=== PATIENT | female | born 1990 | race American Indian/Alaskan Native ===

== ENCOUNTER 2019-03-14 17:48 | Inpatient (IN) | payer MEDICAID ==
[2019-03-14] MEDS ORDERED: LACTATED RINGERS 1,000 ML IV ONE (20:08)
[2019-03-14] MEDS ORDERED: MINERAL OIL 30 ML ORAL LIQD PO PRN (21:47)
[2019-03-14] MEDS ORDERED: ePHEDrine SULFATE 50 MG/1 ML INJ IV PRN (21:47)
[2019-03-14] MEDS ORDERED: LIDOCAINE (2%) 20 MG/1 ML VIAL 20 ML MDV INFILTRATI ONE (21:47)
[2019-03-14] MEDS ORDERED: ONDANSETRON 4 MG/2 ML INJ IV PRN ×2 (21:47→22:27)
[2019-03-14] MEDS ORDERED: BUTORPHANOL 2 MG/1 ML INJ IV PRN (21:47)
[2019-03-14] MEDS ORDERED: TERBUTALINE 1 MG/1 ML INJ IVP PRN (21:47)
[2019-03-14] MEDS ORDERED: TERBUTALINE 1 MG/1 ML INJ SUB-Q PRN (21:47)
[2019-03-14] MEDS ORDERED: AMPICILLIN/NS 2 GM/100 ML 2 GM/100 ML BAG IV ONE ×2 (21:47→21:49)
[2019-03-14] MEDS ORDERED: fentaNYL 100 MCG/2 ML INJ IV PRN (21:47)
[2019-03-14] MEDS ORDERED: OXYTOCIN 20 UNIT/1000ML DRIP 20,000 MILLIUNITS/1,000 ML BAG IV ONE (21:49)
--- NOTE | 2019-03-14 21:54 | History and Physical Report ---
History of Present Illness Date of examination: 03/14/19 Chief complaint: Labor History of present illness: Pt is a 28yo BF EDC 03/24/19; EGA 38 4/7 weeks presents to L&D complaining of RUC's q 3-5 mins. She received late care at [facility] since 27 weeks and course has been unremarkable. records are available and GBS is Positive. 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 Social history: no significant social history, single - Obstetrical History Expected Date of Delivery: 03/24/19 Actual Gestation: 38 Week(s) 5 Day(s) Medications and Allergies Allergies Allergy/AdvReac Type Severity Reaction Status Date / Time No Known Allergies Allergy Verified 03/14/19 23:54 Review of Systems All systems: negative - Vital Signs Vital signs: Vital Signs Pulse BP 89 109/75 03/14/19 18:10 03/14/19 18:10 Temp Pulse Resp BP Pulse Ox 82 109/75 98 03/14/19 19:01 03/14/19 18:10 03/14/19 19:01 - Physical Exam Cardiovascular: Regular rate Lungs: Positive: Clear to auscultation Abdomen: Positive: normal appearance Genitourinary (Female): Positive: normal external genitalia Uterus: Positive: enlarged Extremities: Positive: normal - Obstetrical FHR: category 1 Uterine Contraction Monitor Mode: External Cervical Dilatation: 10 Cervical Effacement Percentage: 100 Uterine Contraction Pattern: Regular Uterine Tone Measurement Phase: Contraction Uterine Contraction Intensity: Moderate Results Result Diagrams: 03/14/19 Unknown All other labs normal. Assessment and Plan - Patient Problems (1) 38 weeks gestation of Onset Date: 03/14/19 Current Visit: Yes Status: Acute Plan to address problem: A: IUP @ 38 4/7 weeks in labor +GBS P: Admit to L&D for expectant vaginal delivery IV Ampicillin
[2019-03-14] MEDS ORDERED: OXYTOCIN 20 UNIT/1000ML DRIP 20 UNITS/1,000 ML BAG IV SCH (22:00)
[2019-03-14] MEDS ORDERED: OXYTOCIN DRIP 30 UNITS/500 ML BAG IV SCH (22:00)
[2019-03-14] MEDS ORDERED: LACTATED RINGERS 1,000 ML IV SCH (22:00)
[2019-03-14 22:02] LABS: Hematocrit 35.1 % (30.3-42.9); Hemoglobin 11.5 gm/dl (10.1-14.3); Mean Corpuscular HGB Conc 33 % (30-34); Mean Corpuscular Volume 85 fl (79-97); Platelet Count 243 K/mm3 (140-440); Red Blood Count 4.15 M/mm3 (3.65-5.03); Red Cell Distribution Width 13.7 % (13.2-15.2)
--- NOTE | 2019-03-14 22:26 | Procedure Note ---
OB Delivery Note - Delivery Date of Delivery: 03/14/19 Surgeon: MICHAEL MITCHELL Estimated blood loss: 200cc - Vaginal Delivery presentation: vertex Delivery position: OA Intrapartum events: precipitous labor- <3hr Delivery induction: none Delivery augmentation: rupture of membranes Delivery monitor: external FHT, external uterine Route of delivery: Delivery placenta: spontaneous Delivery cord: nuchal cord, 3 umbilical vessels Episiotomy: none Delivery laceration: none Anesthesia: none Delivery comments: Infant delivered OA and placed on Mom's chest for [id number] bonding and delayed cord clamping, cut by Mom - Infant A at 1 minute: 8 at 5 minutes: 9 Gender: Female (3360gms)
[2019-03-14] MEDS ORDERED: diphenhydrAMINE 25 MG CAP PO PRN (22:27)
[2019-03-14] MEDS ORDERED: WITCH HAZEL/ GLYCERIN PAD TP PRN (22:27)
[2019-03-14] MEDS ORDERED: MAGNESIUM HYDROXIDE (MOM) ORAL LIQD UDC PO PRN (22:27)
[2019-03-14] MEDS ORDERED: BENZOCAINE/MENTHOL 20/0.5% TOP SPRAY 56 GM TP PRN (22:27)
[2019-03-14] MEDS ORDERED: PROMETHAZINE 25 MG TAB PO PRN (22:27)
[2019-03-14] MEDS ORDERED: HYDROcodone/ACETAMINOPHEN 5-325 MG TAB PO PRN (22:27)
[2019-03-14] MEDS ORDERED: ACETAMINOPHEN 325 MG TAB PO PRN (22:27)
[2019-03-14] MEDS ORDERED: LANOLIN/ZINC/DIMETHICONE (LANSINOH) 7 GM TP PRN (22:27)
[2019-03-14] MEDS ORDERED: PROMETHAZINE 25 MG RECT SUPP PR PRN (22:27)
[2019-03-15] MEDS: IBUPROFEN 600 MG TAB PO SCH ×5 (00:47→23:02)
[2019-03-15] MEDS ORDERED: AMPICILLIN/NS 1 GM/50 ML 1 GM/50 ML BAG IV SCH (01:49)
--- NOTE | 2019-03-15 09:40 | Progress Note ---
Assessment and Plan - Patient Problems (1) 38 weeks gestation of Onset Date: 03/14/19 Current Visit: Yes Status: Resolved (2) (normal spontaneous vaginal delivery) Onset Date: 03/15/19 Current Visit: Yes Status: Resolved Plan to address problem: A: S/P - PPD #1 Doing well Asymptomatic anemia - stable P: May go home tomorrow. Subjective - Subjective Date of service: 03/15/19 Principal diagnosis: s/p - PPD #1 Interval history: Pt is feeling well without complaints. Bleeding improved. Patient reports: appetite normal, voiding normally, pain well controlled, flatus, ambulating normally, no dizzy ambulation, no nauseated [place]: doing well, nursing well Objective - Vital Signs Latest vital signs: Vital Signs Temp Pulse Resp BP BP Pulse Ox 03/15/19 07:46 98.0 F 74 20 98/58 99 03/15/19 06:42 18 03/15/19 04:54 97.8 F 86 20 98/60 97 03/15/19 01:47 18 03/15/19 00:47 18 03/15/19 00:27 98.3 F 88 20 106/57 98 03/15/19 00:05 98.0 F 16 03/15/19 00:00 84 99 03/14/19 23:55 79 100 03/14/19 23:50 76 100 03/14/19 23:48 82 108/57 03/14/19 23:45 80 100 03/14/19 23:40 76 100 03/14/19 23:35 78 100 03/14/19 23:33 77 113/62 03/14/19 23:30 82 99 03/14/19 23:25 81 98 03/14/19 23:21 94 H 93 03/14/19 23:20 83 100 03/14/19 23:18 85 106/56 03/14/19 23:15 91 H 100 03/14/19 23:10 86 100 03/14/19 23:05 85 100 03/14/19 23:03 83 105/59 03/14/19 23:00 82 100 03/14/19 22:55 89 100 03/14/19 22:50 87 100 03/14/19 22:48 87 103/58 03/14/19 22:45 85 100 03/14/19 22:40 86 100 03/14/19 22:30 100 H 98 03/14/19 22:25 98 H 99 03/14/19 22:20 98.1 F 84 16 100 03/14/19 22:17 95 H 84 03/14/19 22:15 90 100 03/14/19 22:10 88 100 03/14/19 22:09 110 H 91 03/14/19 21:40 98.2 F 18 03/14/19 19:01 82 98 03/14/19 18:56 86 99 03/14/19 18:51 95 H 98 03/14/19 18:46 81 100 03/14/19 18:41 88 98 03/14/19 18:36 85 100 03/14/19 18:31 75 99 03/14/19 18:26 81 99 03/14/19 18:21 82 98 03/14/19 18:16 90 99 03/14/19 18:11 83 100 03/14/19 18:10 89 109/75 Intake and Output 03/14/19 03/15/19 03/15/19 22:59 06:59 14:59 Intake Total 360 120 Output Total 2000 Balance -1640 120 Intake: Oral 360 120 Output: Urine 2000 Void 2000 Other: Total, Intake Amount 240 120 Total, Output Amount 600 # Voids Void 1 1 Weight 78.925 kg Estimated Blood Loss 200 - Exam Breasts: Present: deferred Abdomen: Present: normal appearance, soft Uterus: Present: normal, firm, fundal height below umbilicus Extremities: Present: normal - Labs Labs: Laboratory Tests 03/14/19 03/14/19 03/15/19 Unknown Unknown 11:12 WBC 8.1 RBC 4.15 Hgb 11.5 10.1 Hct 35.1 30.6 MCV 85 MCH 28 MCHC 33 RDW 13.7 Plt Count 243 Blood Type B POSITIVE Antibody Screen Negative
--- NOTE | 2019-03-15 10:31 | Discharge Summary ---
Providers - Providers Date of Admission: 03/14/19 22:47 Date of discharge: 03/16/19 Attending physician: MICHAEL MITCHELL Primary care physician: THUY GENTILE Hospitalization Reason for admission: active labor, IUP at term Delivery: Episiotomy: none Laceration: none Other procedures: none complications: none Discharge diagnosis: IUP at term delivered baby: female Hospital course: Unremarkable. Condition at discharge: Good Disposition: DC-01 TO HOME OR SELFCARE - Discharge Diagnoses (1) 38 weeks gestation of Status: Resolved (2) (normal spontaneous vaginal delivery) Status: Resolved Plan - Discharge Medications Prescriptions: Ferrous Sulfate [Feosol 325 MG tab] 325 mg PO BID #60 tablet Ibuprofen [Motrin 600 MG tab] 600 mg PO Q6HR #30 tablet Vit-Fe Fumar-FA [ Vitamin] 1 each PO QDAY #30 tablet - Provider Discharge Summary Activity: routine, no sex for 6 weeks, no heavy lifting 4 weeks, no strenuous exercise Diet: routine Instructions: routine Additional instructions: [] Smoking cessation referral if applicable(refer to patient education folder for contact #) [] Refer to [facility] Booklet Call your doctor immediately for: * Fever > 100.5 * Heavy vaginal bleeding ( >1 pad per hour) * Severe persistent headache * Shortness of breath * Reddened, hot, painful area to leg or breast * Drainage or odor from incision. * Keep incision clean and dry at all times and follow doctor's instructions regarding bathing/showering - Follow up plan Follow up: THUY GENTILE MD [Primary Care Provider] - 6 Weeks MICHAEL MITCHELL MD [Staff Physician] - 6 Weeks
[2019-03-15 11:39] LABS: Hematocrit 30.6 % (30.3-42.9); Hemoglobin 10.1 gm/dl (10.1-14.3)
[2019-03-15] MEDS: DOCUSATE SODIUM 100 MG CAP PO SCH ×2 (13:18→22:42)
[2019-03-15] MEDS: FERROUS SULFATE 325 MG TAB PO SCH ×2 (13:19→22:42)
[2019-03-15] MEDS: PRENATAL VIT27-FE FUMARATE-FOLIC ACID VIT TAB PO SCH (13:19)
[2019-03-15] MEDS ORDERED: MEASLES, MUMPS & RUBELLA 12,500 UNIT/0.5 ML VACCINE SUB-Q ONE (22:27)
[2019-03-16] MEDS: IBUPROFEN 600 MG TAB PO SCH (05:48)
[2019-03-16] MEDS ORDERED: TETANUS,DIPH,PERTUSS(ACELL) VACCINE 0.5 ML SYRINGE IM ONE (06:00)
[2019-03-16] MEDS: PRENATAL VIT27-FE FUMARATE-FOLIC ACID VIT TAB PO SCH (09:19)
[2019-03-16] MEDS: DOCUSATE SODIUM 100 MG CAP PO SCH (09:19)
[2019-03-16] MEDS: FERROUS SULFATE 325 MG TAB PO SCH (09:19)
[2019-03-16 19:02] VITALS: BP 94/59
== END 2019-03-16 19:00 | disposition home or self-care (01) | DRG 775 ==
LOC: TRG 17:48 → LD 22:47 → OB 03-15 00:37
PROVIDERS: ADMIT Obstetrics & Gynecology; ATTEND Obstetrics & Gynecology
PROC: 10E0XZZ Delivery of Products of Conception, External Approach (ICD-10-PCS; principal; 2019-03-14)
PROC: 3E0134Z Introduction of Serum, Toxoid and Vaccine into Subcutaneous Tissue, Percutaneous Approach (ICD-10-PCS; 2019-03-15)
PROC: 3E0234Z Introduction of Serum, Toxoid and Vaccine into Muscle, Percutaneous Approach (ICD-10-PCS; 2019-03-16)
DX: O99.824 Streptococcus B carrier state complicating childbirth (principal); O69.81X0 Labor and delivery complicated by cord around neck, without compression, not applicable or unspecified; O62.3 Precipitate labor; O90.81 Anemia of the puerperium; Z3A.38 38 weeks gestation of pregnancy; Z37.0 Single live birth; Z23 Encounter for immunization
CPT/HCPCS: 36415; 85014; 85018; 85027; 86850; 86900; 86901; 90471; 90715; G0378; J0290; J2590; J7120